=== PATIENT | male | born 1955 | race Caucasian/White ===

== ENCOUNTER 2017-01-09 10:39 | Emergency (ER) | payer OTHER ==
[~2017-01-09] VITALS: Ht 167.6 cm; Wt 92.8 kg
[~2017-01-09 10:39] MED LIST: ASPIR-TRIN325 M1 PO; ECOTRIN325 MG PO; NOHOMEMEDS; ZANTAC150 MG PO
[2017-01-09] MEDS ORDERED: HYCODAN SYRUP480 ML PO (13:17)
[2017-01-09] MEDS ORDERED: DOXYCYCLINE HY100 MG PO (13:17)
[2017-01-09 13:46] VITALS: BP 131/70
== END 2017-01-09 13:47 | disposition home or self-care (01) ==
LOC: EME 10:39
DX: J44.1 Chronic obstructive pulmonary disease with (acute) exacerbation (principal); J20.9 Acute bronchitis, unspecified; J44.0 Chronic obstructive pulmonary disease with (acute) lower respiratory infection; F17.200 Nicotine dependence, unspecified, uncomplicated; K21.9 Gastro-esophageal reflux disease without esophagitis
CPT/HCPCS: 71010; 93005; 94640; 99281; 99284